=== PATIENT | female | born 1970 | race Caucasian/White ===

== ENCOUNTER 2016-10-31 15:21 | Emergency (ER) | payer BC ==
[~2016-10-31] VITALS: Ht 154.9 cm; Wt 82.1 kg
[~2016-10-31 15:21] MED LIST: ADDERALL20 MG PO; LISINOPRIL5 MG PO; PROZAC40 MG PO; WELLBUTRIN SR150 MG PO; ZESTORETIC,P1 TABLE1 PO
[2016-10-31] MEDS ORDERED: CLEOCIN300 MG PO (16:25)
[2016-10-31 16:34] VITALS: BP 173/102
== END 2016-10-31 16:45 | disposition home or self-care (01) ==
LOC: EME 15:21
DX: L73.9 Follicular disorder, unspecified (principal)
CPT/HCPCS: 99281; 99284

== ENCOUNTER 2016-12-29 11:40 | Emergency (ER) | payer BC ==
[~2016-12-29] VITALS: Ht 154.9 cm; Wt 74.3 kg
[~2016-12-29 11:40] MED LIST changes: +CLEOCIN300 MG PO
[2016-12-29] MEDS ORDERED: NAPROSYN500 MG PO (15:02)
[2016-12-29] MEDS ORDERED: BACTRIM,SEPT1 TABLET PO (15:02)
[2016-12-29 15:23] VITALS: BP 163/94
== END 2016-12-29 15:30 | disposition home or self-care (01) ==
LOC: EME 11:40
DX: L02.215 Cutaneous abscess of perineum (principal); I10 Essential (primary) hypertension; Z87.442 Personal history of urinary calculi; Z87.891 Personal history of nicotine dependence
CPT/HCPCS: 87070; 87075; 87077; 87147; 87186; 87205; 99281; 99284